=== PATIENT | male | born 1955 | race Caucasian/White ===

== ENCOUNTER → 2019-05-23 | Day surgery (SDC) | payer BC ==
[~2019-05-23] MED LIST: ASPI-630 PO; ATROPINE 0.5 MG/5 ML DISP.SYRIN. IV PRN; IV RINGERS SOLUTION,LACTATED 1,000 ML IV SCH; LIDOCAINE 1% PF 30 ML VIAL. ONE; LIDOCAINE 2% 20 ML VIAL. ONE; PROPOFOL 40 ML IV ONE; SIMV10TA15 PO; SIMV20TA18 PO
[2019-05-23 09:11] VITALS: BP 124/86
== END | disposition home or self-care (01) ==
LOC: SURG 06:53
PROVIDERS: ATTEND Internal Medicine Gastroenterology
DX: Z12.11 Encounter for screening for malignant neoplasm of colon (principal); K63.89 Other specified diseases of intestine; K57.30 Diverticulosis of large intestine without perforation or abscess without bleeding; E78.5 Hyperlipidemia, unspecified; H66.90 Otitis media, unspecified, unspecified ear; R73.01 Impaired fasting glucose; Z88.0 Allergy status to penicillin; Z98.890 Other specified postprocedural states; Z80.0 Family history of malignant neoplasm of digestive organs; Z86.010 Personal history of colon polyps
CPT/HCPCS: 45378; J2001; J2704; J7120

== ENCOUNTER → 2021-03-13 | Outpatient (CLI) | payer MEDICARE, BC ==
[2019-05-23 09:11] VITALS: BP 124/86
[~2021-03-13] MED LIST changes: -ATROPINE 0.5 MG/5 ML DISP.SYRIN. IV PRN; -IV RINGERS SOLUTION,LACTATED 1,000 ML IV SCH; -LIDOCAINE 1% PF 30 ML VIAL. ONE; -LIDOCAINE 2% 20 ML VIAL. ONE; -PROPOFOL 40 ML IV ONE
--- NOTE | 2021-03-13 09:24 | RAD ---
EXAM: CT CHEST WITHOUT CONTRAST (LDCT LUNG CANCER SCREENING). HISTORY: Risk factors for pulmonary malignancy. Nicotine dependence. TECHNIQUE: CT of the chest was performed without intravenous contrast using a low-dose lung screening protocol. Findings analysis is based on ACR Lung-RADS v1.1. *One or more of the following individual ized dose reduction techniques were utilized for this examination: 1. Automated exposure control. 2. Adjustment of the mA and/or kV according to patient size. 3. Use of iterative reconstruction technique. RADIATION DOSE: DLP: 64.3 CTDI VOL(per sequence): 2.09 COMPARISON: None. FINDINGS: Nodules: No clinically suspicious nodules. Basilar subsegmental atelectasis. Right lower lobe calcifi ed granuloma. Other findings: Images of the upper abdomen reveal no acute abnormality. Bone windows reveal no suspi cious lesions. There are no pathologically enlarged mediastinal or axillary lymph nodes. And calcified right hilar l ymph nodes. There is no pleural or pericardial effusion. The heart is not enlarged. Severe coronary a rtery atherosclerotic disease. Thyroid gland and esophagus are unremarkable. Bilateral gynecomastia. No pulmonary parenchymal process is identified. IMPRESSION/RECOMMENDATION: 1. ACR Lung-RADS category: 1 2. Continue annual screening with LDCT in 12 months. Electronically signed by: Roberto Orellana DO (03/13/2021 9:22 AM) [facility]
--- NOTE | 2021-03-13 12:45 | RAD ---
EXAM: US ABDOMINAL AORTA SCREENING AAA 03/13/2021 8:47 AM CLINICAL INDICATION: AAA screening, history of smoking. COMPARISON: None TECHNIQUE: Grayscale, color and spectral Doppler ultrasound images of the aorta. FINDINGS: There is minimal plaque in the abdominal aorta. Proximal aorta: 2.5 x 1.8 cm, peak systolic velocity 96 cm/s Mid aorta: 2.0 x 1.9 cm, peak systolic velocity 105 cm/s Distal aorta: 1.9 x 1.8 cm, peak systolic velocity 140 cm/s Right common iliac artery: 1.9 x 0.9 cm, peak systolic velocity 149 cm/s Left common iliac artery: 1.2 x 1.0 cm, peak systolic velocity 155 cm/s. IMPRESSION: No abdominal aortic aneurysm. . Electronically signed by: Jeanine Casiano MD (03/13/2021 12:43 PM) [id number]
== END ==
LOC: CT 08:30
PROVIDERS: ATTEND Family Medicine
DX: Z13.6 Encounter for screening for cardiovascular disorders (principal); Z00.00 Encounter for general adult medical examination without abnormal findings; J98.11 Atelectasis; J84.10 Pulmonary fibrosis, unspecified; I25.10 Atherosclerotic heart disease of native coronary artery without angina pectoris; N62 Hypertrophy of breast; F17.201 Nicotine dependence, unspecified, in remission
CPT/HCPCS: 71271; 76770